=== PATIENT | female | born 1985 | race Caucasian/White ===

== ENCOUNTER 2019-09-01 14:01 | Outpatient (CLI) | payer BC, SELFPAY ==
--- NOTE | ~2019-09-01 | US_ITS ---
EXAMINATION: US OB <=14 wk fetus w TV EXAM DATE: 09/01/2019 14:47 INDICATION: Threatened . First trimester. TECHNIQUE: Pelvic obstetrical transabdominal and transvaginal sonogram was performed by a technologi . There are multiple grayscale and Doppler images available for interpretation. There are no divina ier studies of this gestation for comparison. FINDINGS: Uterus measures 7.8 x 4.3 x 3.5 cm. There is intrauterine gestation sac. pole with heart rate confirmed at 115 beats per minute. There is discrepancy between the gestation sac estimate d age and the crown-rump length estimated age. Mean sac diameter of 1.0 cm corresponds to estimated a ge by ultrasound 5 weeks 4 days, while the 9 mm crown-rump length corresponds to estimated gestationa l age 6 weeks 6 days. Additionally, the yolk sac has a flattened abnormal appearance. These are poor prognostic indicators. There is no sonographic evidence of subchorionic hemorrhage. Left ovary iden tified and is morphologically normal. IMPRESSION: Live intrauterine gestation with greater than one week discrepancy between age by mean sa c diameter and crown-rump length. Abnormally shaped yolk sac. Poor prognostic indicators for this pre gnancy. Follow up as indicated clinically. Reviewed, dictated and finalized at location A. IMPRESSION: Live intrauterine gestation with greater than one week discrepancy between age by mean sac diameter and crown-rump length. Abnormally shaped yolk sac. Poor prognostic indicators for this . Follow up as indicated clinically.
== END 2019-09-01 14:02 | disposition home or self-care (01) ==
PROVIDERS: PCP Physician Assistant; Visit Provider Obstetrics & Gynecology
DX: O20.0 Threatened abortion (principal); Z3A.00 Weeks of gestation of pregnancy not specified
CPT/HCPCS: 76801; 76817

== ENCOUNTER 2020-02-21 08:22 | Outpatient (CLI) | payer BC, SELFPAY | END 2020-02-21 08:23 | disposition home or self-care (01) | PROVIDERS: PCP Physician Assistant; Visit Provider Obstetrics & Gynecology | DX: R19.7 Diarrhea, unspecified (principal) | CPT/HCPCS: 87045; 87046; 87077; 87177; 87209; 87324; 87427 ==

== ENCOUNTER 2020-08-20 08:56 | Inpatient (IN) | payer BC, SELFPAY ==
[2020-08-20] VITALS (92 sets, daily range): BP systolic 89–130; BP diastolic 46–95; PULSE 61–252; RESP 16; TEMP 36.3–37; O2SAT 80–100; BMI 24.5
[2020-08-20] MEDS: LACTATED RINGERS 1,000 ML 125 ML IV CONT ×3 (09:45→12:42)
[2020-08-20] MEDS: AMPICILLIN 2 GM/NS 100 ML 2 GM/100 ML BAG IVPB (09:46)
--- NOTE | 2020-08-20 09:47 | LDADM ---
This patient, Raya Rico, was admitted to Labor/Delivery/Recovery 108 on 08/20/20 at 08:56. Plans for labor, pain management and were discussed with patient. Patient/family oriented to hospital policies and general routines including ID bracelet, bed and alarms, visiting hours, pain management, procedures, bathroom and other care routines, personal items, smoking policy, room service/diet and guest tray routines, security routines, call light, and visiting hours. Patient/Family are encouraged to report perceived risks to care and to ask questions if they do not understand what they are told or what they should do. See OBIX for further documentation.
[2020-08-20 09:56] LABS: Basophils Percent Auto 0.4 % (0.2-1.2); Eosinophils Absolute Auto 0.1 K/mm3 (0-0.3); Eosinophils Percent Auto 1.3 % (0-4.4); Hematocrit 32.6 % (37.0-47.0); Hemoglobin 11.5 g/dL (12.0-15.0); Immature Granulocyte Absolute 0.16 K/mm3 (0.00-0.031); Immature Granulocyte Percent A 2.3 % (0-0.5); Lymphocytes Absolute Auto 1.13 K/mm3 (0.9-3.2); Lymphocytes Percent Auto 16.5 % (18.3-44.2); Mean Corpuscular HGB Conc 35.3 g/dl (32-36); Mean Corpuscular Hemoglobin 32.3 pg (26-34); Mean Corpuscular Volume 91.6 fl (80-100); Mean Platelet Volume 9.8 fl (7.4-10.4); Monocytes Absolute Auto 0.6 K/mm3 (0.1-0.6); Monocytes Percent Auto 8.8 % (2.6-8.5); Neutrophils Absolute Auto 4.8 K/mm3 (1.3-6.7); Neutrophils Percent Auto 70.7 % (45.5-73.1); Platelet Count Result 209 k/mm3 (150-375); Red Blood Count 3.56 M/mm3 (4.2-5.4); White Blood Count 6.8 K/mm3 (4.5-10.0)
--- NOTE | 2020-08-20 10:06 | P.PNAN_ITS ---
Anes - Eval Pre Procedure Procedure: labor epidural Date/Time: 08/20/20 10:06 Surgeon: Eron Pre Op Diagnosis: SROM Patient Data Age: 35 Gender: F Height: 5 ft 4 in Weight: 64.7 kg Last Vital Signs Temp 37.0 C 08/20/20 09:58 Pulse 82 08/20/20 10:00 BP 103/72 08/20/20 10:00 Allergies Allergy/AdvReac Type Severity Reaction Status Date / Time lanolin Allergy Unknown Verified 08/15/20 13:32 PROPELYNE GLYCOL Allergy Rash Uncoded 08/15/20 13:32 Home Medications Medication Instructions Recorded Confirmed Type prenat.vits,staci,[id number] 1 tablet PO DAILY 08/15/20 08/15/20 History [ #2] Laboratory Tests 08/20/20 08/20/20 09:33 09:33 WBC 6.8 K/mm3 K/mm3 (4.5-10.0) RBC 3.56 M/mm3 L M/mm3 (4.2-5.4) Hgb 11.5 g/dL L g/dL (12.0-15.0) Hct 32.6 % L % (37.0-47.0) MCV 91.6 fl fl (80-100) MCH 32.3 pg pg (26-34) MCHC 35.3 g/dl g/dl (32-36) RDW 13.0 % % (11.5-14.5) Plt Count 209 k/mm3 k/mm3 (150-375) MPV 9.8 fl fl (7.4-10.4) Immature Gran % (Auto) 2.3 % H % (0-0.5) Neut % (Auto) 70.7 % % (45.5-73.1) Lymph % (Auto) 16.5 % L % (18.3-44.2) [place] % (Auto) 8.8 % H % (2.6-8.5) Eos % (Auto) 1.3 % % (0-4.4) Baso % (Auto) 0.4 % % (0.2-1.2) Lymph # (Auto) 1.13 K/mm3 K/mm3 (0.9-3.2) [place] # (Auto) 0.6 K/mm3 K/mm3 (0.1-0.6) Eos # (Auto) 0.1 K/mm3 K/mm3 (0-0.3) Baso # (Auto) 0.0 K/mm3 K/mm3 (0.0-0.1) Abs Immat Gran (auto) 0.16 K/mm3 H K/mm3 (0.00-0.031) Absolute Neuts (auto) 4.8 K/mm3 K/mm3 (1.3-6.7) Absolute Nucleated RBC 0.0 K/mm3 K/mm3 (0.0-0.012) Nucleated RBC % 0.0 % % (0.0-0.2) RPR Pending Patient hx anesthesia problems: none Family hx anesthesia problems: none PMFSH Family History Family History Mother Hearing aid worn Grandparent Breast cancer in female Social History Social History Smoking status: Never smoker Substance use: never Spiritual care concerns: No Exam Day of Procedure 08/20/20 10:06 Patient weight: normal Heart: regular rate and rhythm Lungs: clear to auscultation and normal air movement Neurological: alert and oriented
--- NOTE | 2020-08-20 11:48 | WPDOBADMIT ---
Obstetrics - Admit Note Admission Note: record reviewed. Additions to the history and/or subsequent changes in the physical findings follow. 35 y/o at 36 4/7 weeks here with gush of clear fluid at 0800, subsequent contractions. GBS test not back yet. Good movement. AVSS ABD soft, nontender, gravid, vertex EXT nontender Cervix 4/50/-2. Gross ROM. Vertex. NST reactive TOCO: contractions every 2-3 min A: IUP a 36 4/7 weeks with SROM, labor. P: Ampicillin. Anticipate .
[2020-08-20] MEDS: AMPICILLIN 1 GM/NS 50 ML 1 GM/50 ML BAG IVPB (13:27)
[2020-08-20] MEDS: ONDANSETRON INJ 4 MG/2 ML VIAL IV PUSH (15:16)
--- NOTE | 2020-08-20 15:35 | PC.NURSE ---
Attempt to assist mother with pumping. Mother is sleeping, kit and pump left at bedside. Report to primary RN
[2020-08-20] MEDS: OXYTOCIN 30 UNITS/NS 500 ML 30 UNITS/500 ML BAG 999 UNITS IV CONT (16:02)
--- NOTE | 2020-08-20 16:14 | PM.OBPRVD ---
OB - Delivery Note Procedure Delivery date: 08/20/20 Procedure: events: Labor < 37 Weeks Intrapartal events: None Delivery monitor: external FHT and external uterine Route of delivery: Laceration Description: Perineal - 1st Degree Delivery repair: vicryl (3-0) Specimen: Yes (cord blood) Quantitative Blood Loss (ml): 210 Anesthesia type: Epidural Disposition: PACU Complications: None Narrative: 35 y/o at 36 4/7 weeks gestation who presented to the hospital after a gush of clear fluid. SROM was diagnosed. Contractions began subsequently. She received ampicillin for GBS unknown status in the . She received an epidural for pain control. Her labor progressed and her cervix dilated completely. She pushed with good effort and delivered the infant's head to the perineum. A loose nuchal cord was splinted and the body delivered. The nuchal cord was reduced. The nose and mouth were bulb suctioned. After a delay, the cord was clamped and cut. The was handed off the field. Cord blood was collected. The placenta delivered spontaneously and was grossly normal in appearance. The usual 3 vessel cord was noted. A first degree midline perineal laceration was sustained. This was reapproximated using 3 0 Vicryl in interrupted figure of eight fashion. Excellent hemostasis resulted as did excellent reapproximation of the normal anatomy. Needle and instrument counts were correct. The patient was taken to recovery room in stable condition. The went to the nursery in stable condition. I was present and scrubbed for the entire delivery. Baby Date of : 08/20/20 Time of : 15:58 Weeks of gestation at delivery: 36 gender: Female Weight (pounds): 7 Weight (ounces): 6 presentation: vertex position: Right Occiput Anterior Placenta delivery description: Spontaneous and Normal Configuration cord vessel description: 3 Vessels, Nuchal Cord and Delayed Cord Clamping score one minute: 8 score five minutes: 8
[2020-08-20] MEDS: OXYTOCIN 30 UNITS/NS 500 ML 30 UNITS/500 ML BAG 125 UNITS IV CONT (16:53)
[2020-08-20] MEDS: IBUPROFEN 600 MG TABLET PO (18:45)
[2020-08-20] MEDS: WITCH HAZEL 40 PADS 1 PAD TOPICAL (20:16)
--- NOTE | 2020-08-20 20:31 | PC.NURSE ---
This patient, Raya Rico, was received from Labor and Delivery on 08/20/20 at 2030. Patient/family oriented to unit policies and routines
[2020-08-21] MEDS: IBUPROFEN 600 MG TABLET PO ×4 (04:10→22:50)
[2020-08-21 05:43] LABS: Hematocrit 28.9 % (37.0-47.0); Hemoglobin 9.8 g/dL (12.0-15.0)
[2020-08-21 06:28] LABS: Rapid Plasma Reagin Non-Reactive (NonReactive)
[2020-08-21 07:45] VITALS: BP 99/71; PULSE 78; RESP 18; TEMP 36.8; O2SAT 100
--- NOTE | 2020-08-21 08:00 | PC.NURSE ---
Consult with pt., mother report she chooses to pump and bottle feed. Mother uses formula until milk is in. Mother is having difficulties with pump, trouble shooting with new tubing given. Reviewed instructions given on breast pump care and usage, pumping schedule, nipple care, and collection and storage of breast milk. Encouraged [id number], breast massage and manual expression to stimulate supply. Pumping log provided and reviewed. Assessed patient for correct flange size, placement and draw. Patient verbalizes and demonstrates understanding of instructions.
[2020-08-21] MEDS: POLYSACCHARIDE IRON COMPLEX 150 MG CAPSULE PO ×2 (08:20→16:10)
[2020-08-21] MEDS: MULTIVIT/MIN/PREN/FOL AC/IRON TABLET 1 TAB PO (08:20)
[2020-08-21] MEDS: DOCUSATE SODIUM 100 MG CAPSULE PO ×2 (08:20→16:10)
--- NOTE | 2020-08-21 09:00 | PC.NURSE ---
Mother is pumping upon entering. Mother reports she was instructed on pump use during the night, mother has not pumped regularly. Discussed stimulation of milk supply and need for regular stimulation. Mother is pumping due to transfer. Reviewed instructions on breast pump care and usage, pumping schedule, nipple care, and collection and storage of breast milk. Encouraged [id number], breast massage and manual expression to stimulate supply. Pumping log provided and reviewed. Assessed patient for correct flange size, placement and draw. Patient verbalizes and demonstrates understanding of instructions. Reviewed transition to breast milk and engorgement/relief. . Reviewed regular medications mother is taking. Information provided per Nubia. Reviewed community resources on the [facility] website and in the Mom/Baby guide. Information on outpatient services provided. Mother has no further questions at this time.
--- NOTE | 2020-08-21 10:15 | WPDANLDPN2 ---
Anes-Prog Note L&D Date/Time: 08/21/20 10:15 Comfortable throughout: labor and delivery Neuraxial method: epidural Epidural/Spinal procedure site: clean & non-tender Neuro status: Neuro function grossly intact. Cardiovascular status: normal Respiratory status: normal Airway patency: baseline Mental status: baseline Post-Op hydration status: normal Vital Signs: Last Vital Signs Temp 36.8 C 08/21/20 07:45 Pulse 78 08/21/20 07:45 Resp 18 08/21/20 07:45 BP 99/71 L 08/21/20 07:45 Pulse Ox 100 08/21/20 07:45 Pain score (VAS): 0 I/O: Intake & Output 08/20/20 08/21/20 08/21/20 23:59 07:59 15:59 Intake Total 1500 Output Total 398 Balance 1102 Post-procedural complaints: none Patient feedback: Patient satisfied with anesthetic care.
[2020-08-21 12:22] VITALS: BP 108/73; PULSE 68; RESP 18; TEMP 37.1; O2SAT 100
--- NOTE | 2020-08-21 13:34 | PM.OBPNVD ---
OB - PN: Subj Subjective Date/time seen: 08/21/20 13:34 Narrative: Complains of some lower abdominal cramping not helped by ibuprofen. OB - PN: Obj Data Labs CBC & Chem 7: 08/21/20 03:52 Labs: Laboratory Results - last 24 hr 08/20/20 08/21/20 09:33 03:52 Hgb 9.8 L Hct 28.9 L RPR Non-reactive OB - PN A/P Plan Comments: A: PPD#1, doing well. P: Routine care. Exam Psych: Other: AVSS ABD soft, nontender, fundus firm EXT nontender
--- NOTE | 2020-08-21 13:35 | PM.OBDSVD ---
DS: Admitting Diagnosis Admitting Diagnosis Admitting Diagnosis: IUP at 36 4/7 weeks SROM DS: Discharge Diagnosis Discharge Diagnosis (1) (normal spontaneous vaginal delivery): Code(s): O80 - Encounter for full-term uncomplicated delivery Status: Acute OB - DS: Summary OB Procedures : None OB Procedures Intrapartum: Spontaneous Vag Delivery OB Procedures: : None Time Spent with Patient Time attestation: Total time spent providing and/or coordinating discharge services: DS: Data Data Completed and Pending Labs on day of discharge: Labs from last 24 hours 08/21/20 08/20/20 03:52 09:33 Hgb 9.8 L Hct 28.9 L RPR Non-reactive Discharge Plan Discharge Attending physician on discharge: Denys Littlejohn Discharging Clinician: Denys Littlejohn Patient Disposition: Home, Self-Care Activity: pelvic rest Diet: regular Discharge Instructions: Call or return if temperature above 100.4? F, increased abdominal pain, increased vaginal bleeding or any new problems. Stand Alone Forms: General Discharge Information Follow-up/Referrals: Denys Littlejohn MD [Physician] - 6 Weeks Discharge Medications: New ibuprofen 600 mg tablet 600 mg PO Q6H PRN (Reason: cramps) Qty: 30 RF: 0 ferrous sulfate 325 mg (65 mg iron) tablet 325 mg PO DAILY Qty: 30 RF: 0 No Action #2 Tablet 1 tablet PO DAILY RF: 0 Date of admission: 08/20/20 08:56 Primary Care Provider: Sajan,Toya Admitting Provider: Denys Littlejohn Attending physician on admission: Denys Littlejohn Condition: Stable
[2020-08-21 19:50] VITALS: BP 114/77; PULSE 72; RESP 16; TEMP 36.9; O2SAT 100
[2020-08-22] MEDS: IBUPROFEN 600 MG TABLET PO (05:34)
[2020-08-22 08:30] VITALS: BP 109/72; PULSE 72; RESP 18; TEMP 36.4; O2SAT 100
[2020-08-22] MEDS: POLYSACCHARIDE IRON COMPLEX 150 MG CAPSULE PO (09:04)
[2020-08-22] MEDS: DOCUSATE SODIUM 100 MG CAPSULE PO (09:04)
[2020-08-22] MEDS: MULTIVIT/MIN/PREN/FOL AC/IRON TABLET 1 TAB PO (09:04)
--- NOTE | 2020-08-22 09:22 | PM.OBPNVD ---
OB - PN: Subj Subjective Date/time seen: 08/22/20 09:22 Narrative: Pain OK. Would like to go home. OB - PN: Obj Data Labs CBC & Chem 7: 08/21/20 03:52 OB - PN A/P Plan Comments: A: PPD#2, doing well. P: Home to f/u 6 weeks. Exam Psych: Other: AVSS ABD soft, nontender, fundus firm EXT nontender
--- NOTE | 2020-08-22 11:00 | PC.NURSE ---
Mother continues to pump without difficulties or discomfort. Discussed when milk supply should transition in. Mother is feeding as required and waking infant to feed if needed. is currently meeting outcomes for weight, output, jaundice and feeding frequencies. Mother states she feels confident to continue current feeding plan to pump and bottle feed EBM/formula at home. Reviewed transition to breast milk, signs of adequate intake, and engorgement/relief. Instructed to call ICP if intake/output less than required. Reviewed regular medications mother is taking. Information provided per Nubia. Reviewed community resources on the [facility] website and in the Mom/Baby guide. Information on outpatient services provided. Mother has no further questions at this time. to pump without difficulties or discomfort. Discussed when milk supply should transition in.
[2020-08-24 10:58] VITALS: BP 111/82; PULSE 73; RESP 14; TEMP 36.8; O2SAT 100
== END 2020-08-22 13:05 | disposition home or self-care (01) | DRG 807 ==
LOC: ANHLDR 09:19 → ANHOB2 20:31
PROVIDERS: Admitting Provider Obstetrics & Gynecology; PCP Physician Assistant; Visit Provider Obstetrics & Gynecology
DX: O60.14X0 Preterm labor third trimester with preterm delivery third trimester, not applicable or unspecified (principal); Z37.0 Single live birth; Z3A.36 36 weeks gestation of pregnancy; O70.0 First degree perineal laceration during delivery; O69.81X0 Labor and delivery complicated by cord around neck, without compression, not applicable or unspecified
CPT/HCPCS: 36415; 84112; 85014; 85018; 85025; 86592; 86850; 86900; 86901; A9270; J0290; J2405; J2590; J2795; J7120

== ENCOUNTER 2021-05-02 12:15 | Outpatient (CLI) | payer BC, SELFPAY ==
--- NOTE | ~2021-05-02 | MMUS_ITS ---
EXAMINATION: MM diagnostic roman BI w gerber, US breast RT limited HISTORY: Palpable right axillary abnormality. TECHNIQUE: Additional 3-D tomosynthesis images of the breasts were performed and synthetic 2-D images were generated. CAD analysis was submitted and interpreted. High resolution right axillary ultrasoun d was performed. COMPARISON: None BREAST PARENCHYMAL COMPOSITION: The breasts are extremely dense, which lowers the sensitivity of mamm ography. FINDINGS: MAMMOGRAPHIC FINDINGS: There are no suspicious masses, calcifications or architectural distortion in either breast to sugges t malignancy. ULTRASOUND: Right axillary ultrasound: Normal heterogeneous tissue without focal solid or cystic mass. IMPRESSION: 1. No evidence for malignancy in either breast. 2. Routine yearly screening mammogram and regular clinical breast examination are recommended. BI-RADS Category 1: Negative Reviewed, dictated and finalized at location A. ITY DIRECTOR IMPRESSION: 1. No evidence for malignancy in either breast. 2. Routine yearly screening mammogram and regular clinical breast examination a re recommended. BI-RADS Category 1: Negative
== END 2021-05-02 12:16 | disposition home or self-care (01) ==
LOC: ANHIMG 12:16
PROVIDERS: PCP Physician Assistant; Visit Provider Obstetrics & Gynecology
DX: N64.4 Mastodynia (principal)
CPT/HCPCS: 76642; 77062; 77066; G0279

== ENCOUNTER → 2022-02-19 09:48 | Outpatient (CLI) | payer BC, SELFPAY ==
--- NOTE | ~2022-02-19 | XR_ITS ---
EXAMINATION: XR scoliosis survey DATE: 02/19/2022 10:15 INDICATION: Low back pain. Scoliosis. TECHNIQUE: Anteroposterior and lateral views of the entire spine standing with breast burgess were ob tained. COMPARISON: None. FINDINGS: There are 12 pairs of ribs. There are 5 nonrib-bearing lumbar segments. There is 16 degrees levoscoliosis from T1 to T6 by the Villareal method. There is 21 degrees dextroscoliosis from T6 to T11. There is 31 degrees levoscoliosis from T11 to L3. IMPRESSION: 1. Scoliosis. Reviewed, dictated and finalized at location A. IMPRESSION: 1. Scoliosis.
== END ==
PROVIDERS: PCP Chiropractor; Visit Provider Chiropractor
DX: M41.9 Scoliosis, unspecified (principal)
CPT/HCPCS: 72082

== ENCOUNTER 2022-07-14 12:23 | Outpatient (CLI) | payer BC, SELFPAY ==
--- NOTE | ~2022-07-14 | MMUS_ITS ---
EXAMINATION: MM diagnostic roman BI w gerber, US breast BI complete HISTORY: Right armpit lump TECHNIQUE: ML, MLO and CC 3-D tomosynthesis images of both breasts were performed and synthetic 2-D i mages were generated. CAD analysis was submitted and interpreted. High resolution complete bilateral breast ultrasound examination including all 4 quadrants and subareolar areas and right axillary ultra sound examination was performed. COMPARISON: 05/02/2021 diagnostic bilateral mammogram and limited right breast ultrasound BREAST PARENCHYMAL COMPOSITION: The breasts are extremely dense, which lowers the sensitivity of mamm ography. FINDINGS: MAMMOGRAPHIC FINDINGS: No suspicious mass or architectural distortion, malignant calcification, skin thickening or retractio n or significant new or developing density is detected. ULTRASOUND: Right axilla: At the area of palpable lump there is a superficial subdermal 4 x 1.5 x 2.8 mm circumsc ribed hypoechoic lesion with central fatty density. There is no internal vascularity. This may be a s mall benign lymph node or sebaceous cyst Right breast 11:00 4 cm from nipple: Parallel circumscribed hypoechoic 4.7 x 2.5 x 5.2 mm lesion with out internal vascularity or posterior shadowing, benign in appearance. No suspicious mass or shadowing of either breast is detected. IMPRESSION: 1. No mammographic evidence of malignancy 2. Routine mammographic screening is recommended beginning at age 40 BI-RADS Category 2: Benign finding(s). Reviewed, dictated and finalized at location A. ECTION SYSTEMS ADMINISTRATOR IMPRESSION: 1. No mammographic evidence of malignancy 2. Routine mammographic screening is recommended beginning at age 40 BI-RADS Category 2: Benign finding(s).
== END 2022-07-14 12:24 | disposition home or self-care (01) ==
PROVIDERS: PCP Chiropractor; Visit Provider Obstetrics & Gynecology
DX: R92.8 Other abnormal and inconclusive findings on diagnostic imaging of breast (principal)
CPT/HCPCS: 76641; 77062; 77066; G0279

== ENCOUNTER → 2023-03-13 09:21 | Outpatient (CLI) | payer BC, SELFPAY ==
--- NOTE | ~2023-03-13 | MMUS_ITS ---
EXAMINATION: MM diagnostic roman RT w gerber, US breast RT complete HISTORY: Right breast pain TECHNIQUE: Additional 3-D tomosynthesis images of the right breast were performed and synthetic 2-D i mages were generated. CAD analysis was submitted and interpreted. High resolution complete right allie st ultrasound was performed. COMPARISON: Comparison to multiple prior studies sequentially, with oldest reviewed study dated 01/2021. BREAST PARENCHYMAL COMPOSITION: The breasts are extremely dense, which lowers the sensitivity of mamm ography FINDINGS: MAMMOGRAPHIC FINDINGS: There are no suspicious masses, calcifications or architectural distortion in the right breast to sug gest malignancy. Right breast is stable. ULTRASOUND: Complete bilateral US of all 4 quadrants of right breast and retroareolar region was reviewed. At 11: 00, 4 cm from the nipple there is an oval hypoechoic 5 mm mass with posterior acoustic enhancement an d no internal vascularity. There are normal-appearing lymph nodes of the right axilla with fatty hilu m. IMPRESSION: 1. Probable benign right breast mass at 11:00, 4 cm from the nipple 2. Recommend 6 month follow-up Limited right breast ultrasound BI-RADS category 3, probably benign findings. Reviewed, dictated and finalized at location A. IMPRESSION: 1. Probable benign right breast mass at 11:00, 4 cm from the nipple 2. Recommend 6 month follow-up Limited right breast ultrasound BI-RADS category 3, probably benign findings.
== END ==
PROVIDERS: PCP Physician Assistant; Visit Provider Physician Assistant
DX: R92.8 Other abnormal and inconclusive findings on diagnostic imaging of breast (principal); N64.4 Mastodynia
CPT/HCPCS: 76641; 77061; 77065; G0279

== ENCOUNTER 2023-09-16 09:34 | Outpatient (CLI) | payer BC, SELFPAY ==
--- NOTE | ~2023-09-16 | MMUS_ITS ---
EXAMINATION: MM diagnostic roman BI w gerber, US breast BI complete HISTORY: Right upper outer quadrant breast pain for 2.5 years, worse over the last 6-8 months. TECHNIQUE: Full field and spot ML, MLO and CC 3-D tomosynthesis images of both breasts were performed and synthetic 2-D images were generated. CAD analysis was submitted and interpreted. High resolution complete bilateral breast ultrasound examination including all 4 quadrants and subareolar area of ea ch breast was performed. COMPARISON: 03/13/2023 diagnostic right mammogram and complete right breast ultrasound examination 07/14/2022 diagnostic bilateral mammogram and complete bilateral breast ultrasound examination BREAST PARENCHYMAL COMPOSITION: The breasts are extremely dense, which lowers the sensitivity of mamm ography. FINDINGS: MAMMOGRAPHIC FINDINGS: No reproducible suspicious mass, architectural distortion, malignant calcification, skin thickening o r retraction of either breast is evident. However, the dense stroma limits the sensitivity of the mammographic examination and may obscure mass es. Bilateral complete breast ultrasound examination was performed. ULTRASOUND: Right breast: There is a parallel circumscribed hypoechoic 2.6 x 4.4 x 5.5 mm mass without internal vascularity or posterior shadowing at 11:00 4 cm from the nipple, benign in appearance. No suspicious mass or shadowing, cyst or other significant sonographic abnormality is noted otherwise on the right. No suspicious mass or shadowing, cyst or other significant abnormality of the left breast. IMPRESSION: 1. Benign finding 2. Routine annual mammographic screening is recommended BI-RADS Category 2: Benign finding(s). Reviewed, dictated and finalized at location A. IMPRESSION: 1. Benign finding 2. Routine annual mammographic screening is recommended BI-RADS Category 2: Benign finding(s).
== END 2023-09-16 09:35 ==
PROVIDERS: PCP Physician Assistant; Visit Provider Physician Assistant
DX: R92.8 Other abnormal and inconclusive findings on diagnostic imaging of breast (principal)
CPT/HCPCS: 76641; 77062; 77066; G0279

== ENCOUNTER 2024-04-28 09:17 | Outpatient (CLI) | payer BC, SELFPAY ==
--- NOTE | ~2024-04-28 | XR_ITS ---
Left Hand Technique: PA, oblique, and lateral views were obtained. Clinical History: Pain Findings: No acute fracture or dislocation is seen. Osseous alignment is anatomic. Joint spaces are p reserved. Soft tissues are unremarkable. Impression: Unremarkable left hand. Reviewed, dictated and finalized at location M. L CORE AND MOLDING SUPERVISOR Impression: Unremarkable left hand.
== END 2024-04-28 09:18 | disposition home or self-care (01) ==
PROVIDERS: PCP Physician Assistant; Visit Provider Physician Assistant
DX: M79.642 Pain in left hand (principal); W21.00XA Struck by hit or thrown ball, unspecified type, initial encounter
CPT/HCPCS: 73130